=== PATIENT | female | born 1980 | race American Indian/Alaskan Native ===

== ENCOUNTER 2019-03-14 08:46 | Day surgery (SDC) | payer MEDICARE ==
[2019-03-14] MEDS ORDERED: CLINDAMYCIN 600 MG/50 mL 600 MG/50 ML BAG IV NR (10:00)
[2019-03-14 10:42] LABS: Calcium 8.3 mg/dL (8.4-10.2)
[2019-03-14] MEDS ORDERED: SODIUM CHLORIDE 0.9% 250ML 250 ML ONE (11:14)
[2019-03-14] MEDS ORDERED: HEPARIN 10,000 UNITS/10 ML VIAL ONE (11:14)
[2019-03-14] MEDS ORDERED: HEPARIN/NS 5000 UNIT/500ML 500 ML IR ONE (11:14)
[2019-03-14] MEDS ORDERED: ceFAZolin/Water 2 GM/20 ML 2 GM/20 ML SYRINGE IV ONE (11:15)
[2019-03-14] MEDS: MIDAZOLAM 2 MG/2 ML INJ ONE ×3 (12:15→12:45)
[2019-03-14] MEDS: fentaNYL 100 MCG/2 ML INJ ONE ×4 (12:15→12:45)
[2019-03-14] MEDS: LIDOCAINE (2%) 20 MG/1 ML VIAL 20 ML MDV INFILTRATI ONE ×2 (12:23→12:45)
[2019-03-14] MEDS: HEPARIN 10,000 UNITS/10 ML VIAL ONE ×2 (12:56→12:57)
--- NOTE | 2019-03-14 13:25 | Short Stay Summary ---
Short Stay Documentation Date of service: 03/14/19 Narrative H&P: See short stay note - Allergies and Medications Current Medications: Allergies Sulfa (Sulfonamide Antibiotics) Allergy (Verified 09/23/13 06:01) Vomiting Home Medications Medication Instructions Recorded Confirmed Last Taken Type Cyclobenzaprine [Flexeril 10 MG 10 mg PO TID PRN 07/26/14 03/14/19 03/29/16 History TAB] 10 mg Oxycodone HCl/Acetaminophen 1 each PO Q6HR PRN 07/26/14 03/14/19 03/13/19 History [Percocet 10/325 mg] 1 Pregabalin 25 mg PO BID 07/26/14 03/14/19 03/13/19 History 25 mg Gabapentin 300 mg PO BID 03/29/16 03/14/19 03/13/19 History 300 mg Sevelamer HCl 800 mg PO QID 03/29/16 03/14/19 03/13/19 History 800 mg traZODone 100 mg PO DAILY 03/29/16 03/14/19 03/13/19 History 100 mg Bupropion HCl [Bupropion HCl Sr] 150 mg PO BID #30 04/02/16 03/14/19 03/13/19 Rx 150 mg Carvedilol [Coreg] 12.5 mg PO BID #60 04/02/16 03/14/19 03/13/19 Rx 12.5mg Insulin Glargine [Lantus VIAL] 15 units SUB-Q QHS 30 Days units 04/02/16 03/14/19 03/13/19 Rx 15 Insulin Regular, Human [HumuLIN R] See Protocol SUB-Q ACHS 30 Days 04/02/16 03/14/19 03/13/19 Rx units 10 Pantoprazole [Protonix TAB] 40 mg PO DAILY #30 tablet 04/02/16 03/14/19 03/13/19 Rx 40 mg - Brief post op/procedure progress note Date of procedure: 03/14/19 Pre-op diagnosis: Complications of Dialysis Access Post-op diagnosis: same Procedure: 1. Ultrasound-Guided Access Left Femoral Vein 2. Placement of 44 cm Palindrome Permacath 3. Radiologic Supervision with Interpretation Anesthesia: local, other (IV sedation) Surgeon: CONG [place] Estimated blood loss: minimal Pathology: none Condition: stable - Disposition Condition at discharge: Good Disposition: DC-01 TO HOME OR SELFCARE Short Stay Discharge Plan Wound: per your surgeon's advice (Okay to use permacath for dialysis. Follow-up with her vascular surgeon for vein mapping results and creation of long-term arteriovenous access.), other (do not get permacath were)
--- NOTE | 2019-03-14 13:32 | Operative Report ---
Operative Report Operative Report: Date of Procedure: 03/14/2019 Pre-operative Diagnosis: Complications of Dialysis Access Post-operative Diagnosis: Same Procedure(s): 1. Ultrasound-Guided Access Left Femoral Vein 2. Placement of 44 cm Palindrome Permacath 3. Radiologic Supervision with Interpretation Surgeon: Ed Peace M.D. 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 The permacath was placed with the distal tip at the cavoatrial junction. Specimen: None Indication: The patient is a 39-year-old female with history of end-stage renal disease who presented with complaints of a dislodged left neck dialysis access. She is in need of temporary dialysis access. She was given the risks, benefits, and alternative procedures and consented to procedure. Description of Procedure: The patient was brought to the labor arbitrator hearing office and laid in supine position. After timeout was performed her left neck and chest were prepped and draped in normal sterile fashion. Initially her right neck was evaluated with ultrasound and found that her right internal jugular vein was occluded. Her previous catheter was in her left neck and upon evaluation it was noted that her left internal jugular vein was also occluded. The decision was then made to access the left femoral vein. Her left groin was prepped and draped in normal sterile fashion. Ultrasound was used to divide with the left femoral vein and confirmed patency. Once patency was confirmed the overlying skin and soft tissue was anesthetized with 2% lidocaine. An 11 blade was used to make a small stab incision and Adrian procedure technique was used with ultrasound guidance in the left common femoral vein and the 0.018 wire was advanced. The needle was removed and a micropuncture sheath was advanced by Seldinger technique. The dilator and wire were removed and a 0.035 J-wire was advanced into the central venous system under fluoroscopy. An exit site on the thigh was chosen and and the exit site and presumed tract were anesthetized with lidocaine. A small stab incision was made and the tunneler was used to tunnel from the exit site to the insertion site. The permacath was connected to the tunneler and the permacath was pulled retrograde through the tunnel and out through the exit site. The micropuncture sheath was removed leaving the J-wire in place and the tract was serially dilated until the 16 Georgian peel-away safety sheath was inserted. The dilator and wire were removed and the permacath was inserted into the safe sheath. The safe sheath was peeled away while advancing the permacath. Position of the permacath was checked and confirmed and the tip was found to be at the cavoatrial junction. The distal portion of the catheter was cut and the hope was connected. Both ports were aspirated and flushed and the ports were primed with the appropriate amount of heparin. The insertion site was then closed with 4-0 Monocryl in interrupted fashion and dressed with Dermabond. The catheter was secured in position with 2-0 Ethilon and dressed with a sterile dressing. The patient tolerated the procedure well and was transported to the recovery in stable condition.
[2019-03-14 15:14] VITALS: BP 180/107
[2019-03-14] MEDS ORDERED: oxyCODONE /ACETAMINOPHEN 5-325MG TAB PO ONE (18:15)
[2019-03-14] MEDS ORDERED: oxyCODONE /ACETAMINOPHEN 5-325MG TAB ONE (18:18)
== END 2019-03-14 18:55 | disposition home or self-care (01) ==
LOC: CATHLABREC 08:46
PROVIDERS: ATTEND Surgery Vascular Surgery
DX: T82.510A Breakdown (mechanical) of surgically created arteriovenous fistula, initial encounter (principal); I13.11 Hypertensive heart and chronic kidney disease without heart failure, with stage 5 chronic kidney disease, or end stage renal disease; E13.22 Other specified diabetes mellitus with diabetic chronic kidney disease; N18.6 End stage renal disease; E13.42 Other specified diabetes mellitus with diabetic polyneuropathy; E13.621 Other specified diabetes mellitus with foot ulcer; E13.43 Other specified diabetes mellitus with diabetic autonomic (poly)neuropathy; G62.9 Polyneuropathy, unspecified; E78.00 Pure hypercholesterolemia, unspecified; J45.909 Unspecified asthma, uncomplicated; F32.9 Major depressive disorder, single episode, unspecified; Z88.2 Allergy status to sulfonamides; Z79.899 Other long term (current) drug therapy; Z79.4 Long term (current) use of insulin; Z98.49 Cataract extraction status, unspecified eye; Z95.1 Presence of aortocoronary bypass graft; Z98.890 Other specified postprocedural states; Z82.49 Family history of ischemic heart disease and other diseases of the circulatory system
CPT/HCPCS: 36415; 36558; 77001; 80048; 99156; 99157; C1750; J0690; J1644; J2250; J3010; J7050